=== PATIENT | male | born 1980 | race Caucasian/White ===

== ENCOUNTER 2019-10-06 20:58 | Emergency (ER) | payer SELFPAY ==
[~2019-10-06] VITALS: Ht 157.5 cm; Wt 63.5 kg
[2019-10-06 21:05] VITALS: BP 108/75
--- NOTE | 2019-10-06 21:05 | NUR ---
PT [facility] BLS. TAKEN TO BED 7
--- NOTE | 2019-10-06 21:17 | NUR ---
38 YEAR OLD MALE BIBA FROM [facility] IN [place] FOR VOMITTING, PER EMS BYSTANDERS CALLED FOR PT. BOWEL SOUNDS ACTIVE X4, SOFT, NONTENDER, NONDISTENDED. PATIENT AOX3 TO NAME, , LOCATION. PATIENT [facility] 14 IS CONFUSED AND ANSWERS QUESTIONS WITH RANDOM ANSWERS. PATIENT BREATHING EVEN AND UNLABORED, SKIN WARM AND DRY. BED IN LOWEST POSITION, LOCKED, BED RAIL UPX1. PT PLACED ON MONITOR, VS STABLE. PMH - SCHIZO ALLERGIES - NORCO
--- NOTE | 2019-10-06 21:25 | NUR ---
PATIENT TORE OFF ALL MONITORING EQUIPMENT, PACING AROUND BEDSIDE. PT EDUCATED OF IMPORTANCE OF EQUIPMENT, REFUSED
--- NOTE | 2019-10-06 21:43 | NUR ---
PT KEEPS SHOUTING, TALKS TO SELF AND IS AGITATED. ERMD MADE AWARE
[2019-10-06] MEDS ORDERED: ZIPRASIDONE MESYLATE 20 MG/ML VIAL IM ONE (21:45)
[2019-10-06] MEDS ORDERED: diphenhydrAMINE 50 MG/ML VIAL IM ONE (21:45)
[2019-10-06] MEDS ORDERED: LORazepam 2 MG/ML VIAL IM ONE (21:45)
--- NOTE | 2019-10-06 22:20 | NUR ---
PATIENT RESTING WITH EYES CLOSED, BREATHING EVEN AND UNLABORED
--- NOTE | 2019-10-06 22:40 | NUR ---
Patient will be admitted to care of DR CRUZ. Admited to TELE. Will go to room 120A. Belongings list completed. Report to MAYITO PATEL.
--- NOTE | 2019-10-06 22:40 | NUR ---
Note ghada in EDM - 10/07/19 at 0106 by DAWN Patient will be admitted to care of DR CRUZ. Admited to TELE. Will go to room 120A. Belongings list completed. Report to MAYITO PATEL.
--- NOTE | 2019-10-06 23:10 | NUR ---
PATIENT RESTING WITH EYES CLOSED, BREATHING EVEN AND UNLABORED
--- NOTE | 2019-10-07 00:24 | NUR ---
PATIENT RESTING WITH EYES CLOSED, BREATHING EVEN AND UNLABORED
--- NOTE | 2019-10-07 00:52 | NUR ---
PATIENT RESTING WITH EYES CLOSED, BREATHING EVEN AND UNLABORED.
--- NOTE | 2019-10-07 02:25 | NUR ---
PATIENT RESTING WITH EYES CLOSED, BREATHING EVEN AND UNLABORED.
--- NOTE | 2019-10-07 04:34 | NUR ---
PATIENT RESTING WITH EYES CLOSED, BREATHING EVEN AND UNLABORED
[2019-10-07 06:19] VITALS: BP 94/62
--- NOTE | 2019-10-07 06:20 | NUR ---
Patient given written and verbal discharge instructions and verbalizes understanding. Given copies of tests performed during visit. Patient is awake, alert and oriented. Ambulatory with steady gait. Refuses offer of alf placement. Given list of available shelters in surrounding areas. Patient clothes appropriate for weather, sandwitch and food given.
--- NOTE | 2019-10-07 06:20 | NUR ---
Patient discharged with v/s stable. Written and verbal after care instructions about polysubstance abuse given and explained. Patient verbalized understanding. Ambulatory with steady gait. All questions addressed prior to discharge. Advised to follow up with PMD.
== END 2019-10-07 06:20 | disposition home or self-care (01) ==
LOC: MED 20:58
DX: F20.9 Schizophrenia, unspecified (principal); F19.10 Other psychoactive substance abuse, uncomplicated; Z88.6 Allergy status to analgesic agent; Z88.5 Allergy status to narcotic agent
CPT/HCPCS: 96372; 99284; J1200; J2060; J3486

== ENCOUNTER 2020-12-15 08:55 | Inpatient (IN) | payer SELFPAY ==
[~2020-12-15] VITALS: Ht 165.1 cm; Wt 72.6 kg
[2020-12-15 09:09] VITALS: BP 128/67
--- NOTE | 2020-12-15 09:18 | NUR ---
PT AMBULATED TO BED
--- NOTE | 2020-12-15 09:35 | NUR ---
40 Y/O M BIB SELF FROM HOME, PATIENT PRESENTS TO ED WITH C/O CHEST PAIN RADIATING TO LLQ. PT STATES HIS LAST ALCOHOL CONSUMPTION WAS 5 DAYS AGO, TYPICALLY DRINKS 12 BEERS IN ONE SITTING. DENIES ANY DRUG USE. DENIES VOMITING, DIARRHEA, CONSTIPATION; SKIN IS PINK/WARM/DRY; AAOX4 WITH EVEN AND STEADY GAIT; LUNGS CLEAR BL; HR EVEN AND REGULAR; PT DENIES ANY FEVER, SOB, OR COUGH AT THIS TIME; PATIENT STATES PAIN OF 8/10 AT THIS TIME; VSS; PATIENT POSITIONED FOR COMFORT; HOB ELEVATED; BEDRAILS UP X2; BED DOWN. ER MD MADE AWARE OF PT STATUS. MEDHX: GALLSTONES, SCHIZOPHRENIA, ALCOHOL DEPENDENCY, TOBACCO DEPENDENCY ALLERGIES: TYLENOL, HYDROCODONE
[2020-12-15] MEDS ORDERED: ALUMINUM HYD/MAG/SIMETHICONE 30 ML UDC PO ONE (10:05)
[2020-12-15] MEDS ORDERED: FAMOTIDINE 20 MG TAB PO ONE (10:05)
--- NOTE | 2020-12-15 11:01 | NUR ---
URINE WAS COLLECTED AND LAB WAS DRAWN VIA IV AND DISCONTINUED. URINE AND LABS WERE TAKEN TO LAB, LEFT WITH HARRISON PHLEB.
[2020-12-15 11:05] LABS: APPEARANCE,URINE CLEAR (CLEAR); BILIRUBIN,URINE NEGATIVE (NEGATIVE); BLOOD, URINE NEGATIVE (NEGATIVE); COLOR,URINE YELLOW (YELLOW); LEUKOCYTE ESTERASE ,URINE NEGATIVE (NEGATIVE); NITRITE, URINE NEGATIVE (NEGATIVE); PH,URINE 6.5 (5.0-9.0); UGLUCOSE NEGATIVE (NEGATIVE)
[2020-12-15 11:17] LABS: BASOPHILS # (AUTO) 0.1 K/uL (0.00-0.22); BASOPHILS % (AUTO) 0.9 % (0.0-2.0); EOSINOPHILS # (AUTO) 0.1 K/uL (0-0.4); HEMOGLOBIN 12.9 g/dL (12.0-18.0); LYMPHOCYTES # (AUTO) 1.4 K/uL (2.0-11.5); LYMPHOCYTES % (AUTO) 14.1 % (20.5-51.1); MEAN CORPUSCULAR HEMOGLOBIN 33 pg (27-31); MEAN CORPUSCULAR HGB CONC 33 g/dL (33-37); MEAN CORPUSCULAR VOLUME 99.1 fL (80-94); MONOCYTES # (AUTO) 0.5 K/uL (0.8-1.0); NEUTROPHILS # (AUTO) 7.8 K/uL (1.8-7.7); PLATELET COUNT (AUTO) 633 K/uL (140-450); RED BLOOD CELL COUNT(AUTO) 3.93 MIL/uL (4.20-6.10); RED CELL DISTRIBUTION WIDTH 14.2 % (11.6-13.7); WHITE BLOOD COUNT (AUTO) 9.9 K/uL (4.8-10.8)
[2020-12-15 11:19] LABS: ALBUMIN 3.1 g/dL (3.4-5.0); ANION GAP 8.1 (8-16); CARBON DIOXIDE 29.9 mmol/L (21-32); CREATININE 0.7 mg/dL (0.6-1.3); TOTAL BILIRUBIN 0.1 mg/dL (0.0-1.0)
[2020-12-15] MEDS ORDERED: NACL 0.9% 1,000 ML IV ONE (13:10)
--- NOTE | 2020-12-15 16:01 | NUR ---
Patient will be admitted to care of SEJAL BRITO. Admited to MED SURG. Will go to room 106A. Belongings list completed. Report to DENISE PATEL.
--- NOTE | 2020-12-15 16:10 | NUR ---
Pt admitted from ED to room 106A via wheelchair. Pt able to ambulate to bed with steady gait. Pt is aaox4, c/o 6/10 abd pain with movement but reports it is tolerable and feels better than when he came in to the ED. Right AC IV 20G intact and asymptomatic. Orientation provided to room and unit routines. Pt verbalized understanding and able to repeat back instructions.
[2020-12-15 16:15] VITALS: BP 113/70
[2020-12-15] MEDS: MORPHINE SULFATE 4 MG/ML SYR IVP PRN (18:18)
--- NOTE | 2020-12-15 19:20 | NUR ---
RECD. SITTING ON BED, AWAKE, A/OX4. RESPIRATION EVEN AND UNLABORED. IV SALINE LOCK AT THE RIGHT AC G20, PATENT AND INTACT. INDEPENDENT, NPO. AMBULATORY TO THE BR. MEDICATIONS AND CARE FOR THE SHIFT DISCUSSED WITH PATIENT. VERBALIZED UNDERSTANDING. DENIES PAIN 0/10.
[2020-12-15] MEDS: NACL 0.9% 1,000 ML IV SCH (19:25)
[2020-12-15 20:00] VITALS: BP 112/70
--- NOTE | 2020-12-15 20:00 | NUR ---
PATIENT'S PLAN OF CARE WAS DISCUSSED AND REVIEWED WITH SUPERVISOR WHIPPED TOPPING: SCARLET BECKHAM.
--- NOTE | 2020-12-15 23:00 | NUR ---
INFORMED NURSE HE IS HEARING VOICES AND HE WANTS HIS HOME MEDICATIONS FOR SCHIZOPHRENIA. WILL MESSAGED DR. POST.
[2020-12-15] MEDS: OLANZapine 5 MG TAB PO SCH (23:36)
[2020-12-15] MEDS: ARIPiprazole 10 MG TAB PO SCH (23:37)
--- NOTE | 2020-12-15 23:37 | NUR ---
MEDICATED WITH ZYPREXA AND ABILIFY PER MD ORDER TO CONTINUE HOME MEDICATIONS.
[2020-12-16] VITALS: BP 106/69
--- NOTE | 2020-12-16 00:40 | NUR ---
DENIES HEARING VOICES.
[2020-12-16] MEDS: MORPHINE SULFATE 4 MG/ML SYR IVP PRN (00:44)
[2020-12-16] MEDS: NACL 0.9% 1,000 ML IV SCH ×4 (02:05→21:22)
--- NOTE | 2020-12-16 03:00 | NUR ---
RESPIRATION EVEN AND UNLABORED. COMFORTABLY SLEEPING IN BED.
[2020-12-16 04:00] VITALS: BP 94/62
--- NOTE | 2020-12-16 05:00 | NUR ---
NO DISTRESS NOTED. COMFORTABLE IN BED.
--- NOTE | 2020-12-16 07:20 | NUR ---
CONDITION REMAIN STABLE. ENDORSED TO AM SHIFT NURSE FOR CONTINUITY OF CARE.
--- NOTE | 2020-12-16 07:21 | NUR ---
PT ENDORSED BY REFINING SUPERVISOR NURSE FOR CONTINUITY OF CARE, POC DISCUSSED. PT IS RESTING COMFORTABLE IN BED ON ROOM AIR WITH CHEST RISING AND FALLING EVEN AND UNLABORED. NO SIGNS OF ACUTE DISTRESS. PT SKIN INTACT WITH A RIGHT AC 20 GAUGE RUNNING NS AT 150. ALL SAFETY MEASURES IN PLACE, CALL LIGHT WITHIN REACH. WILL CONTINUE TO MONITOR.
[2020-12-16] MEDS ORDERED: CRUSHER, PILL MC ONE (08:28)
[2020-12-16] MEDS: OLANZapine 5 MG TAB PO SCH ×2 (08:34→20:31)
[2020-12-16] MEDS: ARIPiprazole 10 MG TAB PO SCH ×2 (08:34→20:31)
--- NOTE | 2020-12-16 08:38 | NUR ---
MELVI MEDICATION ADMINISTERED. PT EDUCATION PROVIDED. PT VITAL SIGNS: 98%, 65HR, 14 RR, BP 95/53 AND TEMP 98.1. EDUCATION PROVIDED ON PAIN MANAGEMENT AND REASSESSING BLOOD PRESSURE. PATIENT NODDED IN UNDERSTANDING. PT IS RESTING IN BED WITH CALL LIGHT WITHIN REACH AND NO SIGNS OF ACUTE DISTRESS. ALL SAFETY MEASURES IN PLACE, CALL LIGHT WITHIN REACH. WILL CONTINUE TO MONITOR.
[2020-12-16] MEDS ORDERED: ONDANSETRON 4 MG/2 ML VIAL IM/IVP PRN (09:10)
[2020-12-16] MEDS ORDERED: ZOLPIDEM 5 MG TAB PO PRN (09:10)
[2020-12-16] MEDS ORDERED: DOCUSATE SODIUM 100 MG GELCAP PO PRN (09:10)
[2020-12-16] MEDS ORDERED: LORazepam 2 MG/ML VIAL IM/IVP PRN (09:10)
[2020-12-16] MEDS ORDERED: MAG SULF 2000 MG/WATER PREMIX 50 ML IV PRN (09:10)
[2020-12-16] MEDS ORDERED: POTASSIUM CHLORIDE 10 MEQ TABER PO PRN (09:10)
--- NOTE | 2020-12-16 09:11 | NUR ---
PATIENT HAS BEEN SCREENED AND CATEGORIZED LOW NUTRITION RISK. PATIENT WILL BE SEEN WITHIN 7 DAYS OF ADMISSION. 12/22/[address]
--- NOTE | 2020-12-16 10:17 | NUR ---
ROUNDED ON PT, PT IS RESTING AND HAS NO COMPLAINTS. REPORTS ALL NEEDS ARE MET. CALL LIGHT WITHIN REACH. WILL CONTINUE TO MONITOR.
[2020-12-16 11:50] LABS: BASOPHILS % (AUTO) 0.5 % (0.0-2.0); EOSINOPHILS # (AUTO) 0.2 K/uL (0-0.4); EOSINOPHILS % (AUTO) 2.9 % (0.0-4.0); HEMATOCRIT 34.4 % (36-52); HEMOGLOBIN 11.5 g/dL (12.0-18.0); LYMPHOCYTES # (AUTO) 1.1 K/uL (2.0-11.5); LYMPHOCYTES % (AUTO) 15.7 % (20.5-51.1); MEAN CORPUSCULAR HEMOGLOBIN 33 pg (27-31); MEAN CORPUSCULAR HGB CONC 33 g/dL (33-37); MEAN CORPUSCULAR VOLUME 97.7 fL (80-94); MONOCYTES # (AUTO) 0.5 K/uL (0.8-1.0); MONOCYTES % (AUTO) 6.8 % (1.7-9.3); NEUTROPHILS # (AUTO) 5.3 K/uL (1.8-7.7); NEUTROPHILS % (AUTO) 74.1 % (42.2-75.2); PLATELET COUNT (AUTO) 471 K/uL (140-450); RED BLOOD CELL COUNT(AUTO) 3.52 MIL/uL (4.20-6.10); RED CELL DISTRIBUTION WIDTH 14.3 % (11.6-13.7); WHITE BLOOD COUNT (AUTO) 7.2 K/uL (4.8-10.8)
[2020-12-16 11:54] LABS: PROTHROMBIN TIME 10.4 secs (10.8-13.4)
[2020-12-16 12:04] LABS: MAGNESIUM 1.7 mg/dL (1.8-2.4); PHOSPHORUS 3.4 mg/dL (2.5-4.9); THYROID STIMULATING HORMONE 0.41 uIU/mL (0.34-3.74)
[2020-12-16] MEDS: MORPHINE SULFATE 2 MG/ML SYR IVP PRN ×2 (12:09→20:43)
[2020-12-16 12:13] LABS: ALBUMIN 2.8 g/dL (3.4-5.0); ANION GAP 8.6 (8-16); CARBON DIOXIDE 28.4 mmol/L (21-32); CREATININE 0.6 mg/dL (0.6-1.3); TOTAL BILIRUBIN 0.2 mg/dL (0.0-1.0)
--- NOTE | 2020-12-16 14:49 | NUR ---
DC PLANNING: SPOKE WITH PATIENT AT BEDSIDE. STATES HE IS HOMELESS, HAS BEEN AT A [facility] FOR ONE WEEK. CONTACT THERE IS E[facility], MESSAGE LEFT ASKING HOME TO CONFIRM THAT PATIENT WILL RETURN THERE. PATIENT ALSO HAS A BROTHER, HILARIA VICTOR ([phone]) WHO GIVES HIM MONEY, PATIENT IS UNEMPLOYED X 8 YEARS AND HAS NO INCOME SOURCE. ADMITS TO ETOH ABUSE AND SCHIZOPHRENIA, DOES NOT HAVE A PCP AND DOES NOT SEE A PHYSICIAN WITH ANY REGULARITY. CURRENTLY SELF PAY, REFERRED FOR M/STUART ELIGIBILITY. PATIENT STATES HE'S RECEIVING ZYPREXA HERE AND THAT HE FEELS MUCH BETTER ON IT. CM WILL CONTINUE TO FOLLOW FOR NEEDS. Addendum: 12/17/20 at 1115 by Kathryn Alexander DC PLANNING: CM SPOKE WTIH PATIENT AT BEDSIDE, ENDORSED THAT PATIENT WILL DC TODAY. ENDORSED THAT A MESSAGE WAS LEFT WITH THE RESIDENTIAL FACILITY HE CAME FROM BUT THAT THEY HAD NOT RESPONDED TO 2 CALLS. CONFIRMED THAT HIS BROTHER CAN PROVIDE TRANSPORT BACK TO FACILITY/HOME AND THAT HE CAN STAY WITH HIS BROTHER IF HOME DOESN'T TAKE HIM BACK. ALSO ENDORSED THAT HIS ZYPREXA HAS BEEN CALLED IN TO A [facility] IN [place] AND THAT NURSING WILL GIVE HIM THE DETAILS. SUGGESTED THAT HE STOP BY PHARMACY ON HIS WAY TO THE HOME.
[2020-12-16 16:00] VITALS: BP 105/62
--- NOTE | 2020-12-16 16:02 | NUR ---
ROUNDED ON PT, PT IS RESTING IN BED WITH NO SIGNS OF ACUTE DISTRESS. VERBALIZED PAIN TOLERABLE. ALL NEEDS ARE MET. IV FLUID STILL RUNNING AT 150ML, IV SITE PATENT. ALL SAFETY MEASURES IN PLACE CALL LIGHT WITHIN REACH. WILL CONTINUE TO MONITOR.
--- NOTE | 2020-12-16 17:44 | NUR ---
PT IS WALKING BACK FROM THE BATHROOM WITH NO S/S OF ACUTE DISTRESS. PT IS STABLE. IV SITE INTACT AND PATENT. PT BACK IN BED WITH CALL LIGHT WITHIN REACH. ALL NEEDS MET, ALL SAFETY MEASURES IN PLACE, WILL CONTINUE TO MONITOR.
--- NOTE | 2020-12-16 18:50 | NUR ---
BRIT VELÁSQUEZ FOR 1.7 LEVEL. PT EDUCATION PROVIDED, PT VERBALIZED UNDERSTANDING. PT VERBALIZED PAIN IS "GETTING MUCH BETTER". ALL SAFETY MEASURES IN PLACE, CALL LIGHT WITHIN REACH. WILL CONTINUE TO MONITOR.
--- NOTE | 2020-12-16 19:07 | NUR ---
PT ENDORSED TO LEATHER COLORER NURSE FOR CONTINUITY OF CARE. POC DISCUSSED
--- NOTE | 2020-12-16 19:30 | NUR ---
REPORT GIVEN BY AM SHIFT. PT IS ALERT ORIENTED X4. NO S/S OF ANY RESP DISTRESS, NO SOB. PT LYING ON BED. SKIN WARM TO TOUCH. SKIN IS INTACT. SR ON TELE MONITOR. IV LINE TO RAC NO 20 WITH NS RUNNING AT 150 CC/HR DARIN WELL. PT IS CONTINENT BOWEL AND BLADDER. GENTLE CARE GIVEN. KEPT CLEAN AND DRY. CALL LIGHT IN REACH.
--- NOTE | 2020-12-16 20:44 | NUR ---
PT C/O PAIN ABD BETWEEN 11/18 TO 12/18. PRN PAIN MEDS GIVEN ORDER.
--- NOTE | 2020-12-16 21:30 | NUR ---
PT SLEEP WELL, NO S/S OF PAIN NOTED.
[2020-12-17] VITALS: BP 92/57
--- NOTE | 2020-12-17 00:23 | NUR ---
PT SLEEP GOOD AT THIS TIME.
[2020-12-17] MEDS: NACL 0.9% 1,000 ML IV SCH ×2 (04:00→11:25)
--- NOTE | 2020-12-17 04:46 | NUR ---
PT STILL SLEEPING. NO S/S PAIN NOTED.
[2020-12-17 06:09] LABS: BASOPHILS % (AUTO) 0.6 % (0.0-2.0); EOSINOPHILS # (AUTO) 0.3 K/uL (0-0.4); EOSINOPHILS % (AUTO) 3.5 % (0.0-4.0); HEMATOCRIT 34.8 % (36-52); HEMOGLOBIN 11.4 g/dL (12.0-18.0); LYMPHOCYTES # (AUTO) 1.7 K/uL (2.0-11.5); LYMPHOCYTES % (AUTO) 21.4 % (20.5-51.1); MEAN CORPUSCULAR HEMOGLOBIN 32 pg (27-31); MEAN CORPUSCULAR HGB CONC 33 g/dL (33-37); MEAN CORPUSCULAR VOLUME 98.8 fL (80-94); MONOCYTES # (AUTO) 0.7 K/uL (0.8-1.0); MONOCYTES % (AUTO) 8.3 % (1.7-9.3); NEUTROPHILS # (AUTO) 5.4 K/uL (1.8-7.7); NEUTROPHILS % (AUTO) 66.2 % (42.2-75.2); PLATELET COUNT (AUTO) 485 K/uL (140-450); RED BLOOD CELL COUNT(AUTO) 3.53 MIL/uL (4.20-6.10); RED CELL DISTRIBUTION WIDTH 14.1 % (11.6-13.7); WHITE BLOOD COUNT (AUTO) 8.1 K/uL (4.8-10.8)
[2020-12-17 06:27] LABS: ANION GAP 12.9 (8-16); CREATININE 0.6 mg/dL (0.6-1.3); POTASSIUM 3.9 mmol/L (3.5-5.1)
[2020-12-17 06:31] LABS: CHOL/HDL RATIO 6.2 (1-4.5); MAGNESIUM 2.2 mg/dL (1.8-2.4); PHOSPHORUS 3.1 mg/dL (2.5-4.9)
--- NOTE | 2020-12-17 07:33 | NUR ---
REPORT GIVEN TO AM SHIFT. PT IS SLEEPING AT THIS TIME.
--- NOTE | 2020-12-17 07:35 | NUR ---
RECEIVED BEDSIDE REPORT FROM SENIOR REPORT DEVELOPER NURSE FOR CONTINUITY OF CARE. PT IS ALERT ORIENTED X4. RESPIRATIONS EVEN AND UNLABORED. NO S/S OF ANY RESP DISTRESS, NO SOB. SKIN WARM TO TOUCH. SKIN IS INTACT. IV LINE ON RAC 20 WITH NS RUNNING AT 150 CC/HR. PATENT AND INTACT. PT IS CONTINENT BOWEL AND BLADDER. PLAN OF CARE DISCUSSED. CALL LIGHT WITHIN REACH. WILL CONTINUE TO MONITOR.
[2020-12-17 08:00] VITALS: BP 103/70
[2020-12-17 08:07] LABS: T4 (THYROXINE) 6.3 ug/dL (4.5-12.0)
[2020-12-17] MEDS: OLANZapine 5 MG TAB PO SCH (09:39)
[2020-12-17] MEDS: ARIPiprazole 10 MG TAB PO SCH (09:39)
[2020-12-17] MEDS: MORPHINE SULFATE 4 MG/ML SYR IVP PRN (09:42)
[2020-12-17] MEDS ORDERED: CRUSHER, PILL MC ONE (09:42)
--- NOTE | 2020-12-17 09:42 | NUR ---
PATIENT COMPLAINED OF ABD PAIN 8/. ADMINISTERED PRN PAIN MEDICATIONS PER MD ORDERED.
--- NOTE | 2020-12-17 10:00 | NUR ---
ALL SCHEDULED MEDS GIVEN. PT IS STABLE. NO DISTRESS NOTED. WILL CONTINUE TO MONITOR.
[2020-12-17] MEDS ORDERED: ABI10 PO (10:07)
[2020-12-17] MEDS ORDERED: OLAN5TAB30 PO (10:07)
[2020-12-17] MEDS ORDERED: PANT40EC PO (10:09)
--- NOTE | 2020-12-17 12:25 | NUR ---
RECEIVED CALL FROM LAB. PT IS TESTED + FOR MRSA IN NARES. NOTIFIED MD AND PROTOCOL IN PLACE.
[2020-12-17] MEDS ORDERED: MUPIROCIN CA NASAL 2% 1GM TUBE NS SCH (12:30)
[2020-12-17] MEDS ORDERED: CHLORHEXADINE GLUC 2% CLOTH TP SCH (12:30)
[2020-12-17 12:41] VITALS: BP 103/70
--- NOTE | 2020-12-17 13:00 | NUR ---
ENDORSED DISCHARGE INSTRUCTIONS TO PATIENT. PATIENT VERBALIZED UNDERSTANDING AND SIGNED THE DISCHARGE FORMS.
--- NOTE | 2020-12-17 13:15 | NUR ---
PT OFF THE UNIT. REMOVED ID WRIST BAND AND IV CATHETER. PATIENT TOOK THE BUS HOME. PT WAS STABLE PRIOR TO DISCHARGE.
== END 2020-12-17 13:15 | disposition home or self-care (01) | DRG 439 ==
LOC: MED 08:55 → EDBEDREQSVC 12:46 → MTU 13:03
DX: K85.90 Acute pancreatitis without necrosis or infection, unspecified (principal); E44.0 Moderate protein-calorie malnutrition; F10.10 Alcohol abuse, uncomplicated; F15.10 Other stimulant abuse, uncomplicated; D75.89 Other specified diseases of blood and blood-forming organs; D47.3 Essential (hemorrhagic) thrombocythemia; D63.8 Anemia in other chronic diseases classified elsewhere; E83.42 Hypomagnesemia; F20.9 Schizophrenia, unspecified; F17.210 Nicotine dependence, cigarettes, uncomplicated; Z88.6 Allergy status to analgesic agent; Z88.5 Allergy status to narcotic agent; Z90.49 Acquired absence of other specified parts of digestive tract; Z91.14 Patient's other noncompliance with medication regimen; Z68.26 Body mass index [BMI] 26.0-26.9, adult
CPT/HCPCS: 36415; 76705; 80048; 80053; 81003; 82140; 82150; 83036; 83690; 83735; 83880; 84100; 84134; 84436; 84443; 85025; 85610; 85730; 87081; 93005; 96360; 96361; 99285; J1644; J2270; J3475

== ENCOUNTER 2021-02-07 19:55 | Inpatient (IN) | payer MEDICAID ==
[~2021-02-07] VITALS: Ht 160 cm; Wt 65.8 kg
[~2021-02-07 19:55] MED LIST: ABI10 PO; OLAN5TAB65 PO; PANT40EC PO
[2021-02-07] MEDS ORDERED: NACL 0.9% 1,000 ML IV SCH (20:35)
[2021-02-07] MEDS ORDERED: MORPHINE SULFATE 4 MG/ML SYR IVP ONE (20:35)
[2021-02-07] MEDS ORDERED: ONDANSETRON 4 MG/2 ML VIAL IVP ONE (20:35)
[2021-02-07 20:38] VITALS: BP 96/65
[2021-02-07 21:02] LABS: BASOPHILS % (AUTO) 0.3 % (0.0-2.0); EOSINOPHILS # (AUTO) 0.1 K/uL (0-0.4); EOSINOPHILS % (AUTO) 1.5 % (0.0-4.0); HEMATOCRIT 34.7 % (36-52); HEMOGLOBIN 11.4 g/dL (12.0-18.0); LYMPHOCYTES # (AUTO) 1.5 K/uL (2.0-11.5); LYMPHOCYTES % (AUTO) 14.8 % (20.5-51.1); MEAN CORPUSCULAR HEMOGLOBIN 30 pg (27-31); MEAN CORPUSCULAR HGB CONC 33 g/dL (33-37); MEAN CORPUSCULAR VOLUME 92.5 fL (80-94); MONOCYTES # (AUTO) 0.8 K/uL (0.8-1.0); MONOCYTES % (AUTO) 7.4 % (1.7-9.3); NEUTROPHILS # (AUTO) 7.7 K/uL (1.8-7.7); PLATELET COUNT (AUTO) 372 K/uL (140-450); RED BLOOD CELL COUNT(AUTO) 3.75 MIL/uL (4.20-6.10); WHITE BLOOD COUNT (AUTO) 10.1 K/uL (4.8-10.8)
--- NOTE | 2021-02-07 21:15 | NUR ---
PT AMBULATED TO BED #4
--- NOTE | 2021-02-07 21:20 | NUR ---
PT. IS A 40 Y/O MALE THAT CAME INTO ED WITH C/O OF ABDOMINAL PAIN. PT. STATES THAT AROUND 10 AM OF THIS MORNING WAS WHEN THE PAIN STARTED. HE DESCRIBES IT "SHARP PAIN" AND RATES PAIN AT 9/10 ON THE PAIN SCALE AT THIS TIME. PT. STATES THAT PAIN IS LOCALIZE UNDER STERNUM. DENIES N/V/D. SKIN IS PINK/WARM/DRY; AAOX4 WITH EVEN AND STEADY GAIT; HR EVEN AND REGULAR; PT DENIES ANY FEVER, CP, SOB, OR COUGH AT THIS TIME; VSS; PATIENT POSITIONED FOR COMFORT; HOB ELEVATED; BEDRAILS UP X2; BED DOWN. ER MD MADE AWARE OF PT STATUS. PMH: SCHIZOPRENIA AND PANCREATITIS ALLERGIES: NKA
[2021-02-07 21:24] LABS: ALBUMIN 3.4 g/dL (3.4-5.0); ANION GAP 13.9 (8-16); CARBON DIOXIDE 27.1 mmol/L (21-32); TOTAL BILIRUBIN 0.4 mg/dL (0.0-1.0)
[2021-02-07] MEDS ORDERED: ONDANSETRON 4 MG/2 ML VIAL ONE (22:06)
[2021-02-07] MEDS ORDERED: MORPHINE SULFATE 4 MG/ML SYR ONE (22:06)
--- NOTE | 2021-02-07 22:39 | NUR ---
PT. STATES RELIEF FROM PAIN AND RATES PAIN 6/10 FROM 9/10 AT THIS TIME. VOICES NO COMPLAINTS AT THIS TIME. WILL CONTINUE TO MONITOR
[2021-02-07] MEDS: LACTATED RINGERS 1,000 ML IV SCH (23:01)
--- NOTE | 2021-02-07 23:10 | NUR ---
PT. IN SUPINE POSITION, RESTING WITH EYES CLOSED. VOICES NO COMPLAINTS AT THIS TIME. NO DISTRESS NOTED, WILL CONTINUE TO MONITOR
[2021-02-07] MEDS ORDERED: SODIUM PHOS / POTASSIUM PHOS 1 PKT PDR PO PRN (23:30)
[2021-02-07] MEDS ORDERED: MAG SULF 2000 MG/WATER PREMIX 50 ML IV PRN (23:30)
[2021-02-07] MEDS ORDERED: POTASSIUM CHLORIDE 40 MEQ, LIDOCAINE MPF 1% 25 MG in NACL 0.9% 250 ML IV PRN (23:30)
[2021-02-07] MEDS ORDERED: ACETAMINOPHEN 325 MG TAB PO PRN (23:30)
[2021-02-07] MEDS ORDERED: ONDANSETRON 4 MG/2 ML VIAL IM/IVP PRN (23:30)
[2021-02-07] MEDS ORDERED: DOCUSATE SODIUM 100 MG GELCAP PO PRN (23:30)
[2021-02-07 23:49] LABS: MAGNESIUM 1.9 mg/dL (1.8-2.4); PHOSPHORUS 3.8 mg/dL (2.5-4.9)
--- NOTE | 2021-02-08 01:54 | NUR ---
PT. RESTING WITH EYES CLOSED IN SUPINE POSITION, BREATHING UNLABORED. VOICES NO COMPLAINTS AT THIS TIME.
--- NOTE | 2021-02-08 05:00 | NUR ---
PT. IN [place] POSITION TO PREVENT LOW BP. PT. RESTING WITH EYES CLOSED, VOICES NO COMPLAINTS AT THIS TIME.
--- NOTE | 2021-02-08 06:00 | NUR ---
PT. STATES HIS PAIN HAS COME BACK AND IS ASKING FOR PAIN MEDICATION. WHEN ASKED TO RATE PAIN, PT. RATES 8/10 ON THE PAIN SCALE AT THIS TIME.
[2021-02-08] MEDS: LACTATED RINGERS 1,000 ML IV SCH ×3 (06:14→18:43)
[2021-02-08] MEDS: MORPHINE SULFATE 2 MG/ML SYR IVP PRN ×2 (06:27→20:22)
--- NOTE | 2021-02-08 06:34 | NUR ---
PT. STATES RELIEF FROM PAIN AFTER MEDICATION ADMINISTRATION OF MORPHINE.
[2021-02-08] MEDS ORDERED: HYDR-5080 PO (06:45)
--- NOTE | 2021-02-08 07:15 | NUR ---
REPORT GIVEN TO AAMNDA HUANG AND AMANDA SENIOR. TRANSFER OF CARE AT THIS TIME.
--- NOTE | 2021-02-08 07:16 | NUR ---
REPORT AND TRANSFER OF CARE RECEIVED FROM AMANDA SOLOMON.
--- NOTE | 2021-02-08 07:20 | NUR ---
PATIENT OBSERVED IN BED AWAKE AND ALERT, VSS, RR EVEN AND UNLABORED. FLUIDS RUNNING LR@150ML/HR. PATIENT ALSO HAS CORY DRAIN, BAG IS EMPTY, PATIENT STATES IT HAS NOT BEEN DRAINING IN 3DAYS.
[2021-02-08 07:59] LABS: BASOPHILS % (AUTO) 0.5 % (0.0-2.0); EOSINOPHILS # (AUTO) 0.2 K/uL (0-0.4); EOSINOPHILS % (AUTO) 2.2 % (0.0-4.0); HEMATOCRIT 28.5 % (36-52); HEMOGLOBIN 9.5 g/dL (12.0-18.0); LYMPHOCYTES # (AUTO) 1.4 K/uL (2.0-11.5); LYMPHOCYTES % (AUTO) 16.8 % (20.5-51.1); MEAN CORPUSCULAR HEMOGLOBIN 30 pg (27-31); MEAN CORPUSCULAR HGB CONC 33 g/dL (33-37); MEAN CORPUSCULAR VOLUME 90.9 fL (80-94); MONOCYTES # (AUTO) 0.7 K/uL (0.8-1.0); MONOCYTES % (AUTO) 8.5 % (1.7-9.3); NEUTROPHILS # (AUTO) 6.2 K/uL (1.8-7.7); PLATELET COUNT (AUTO) 278 K/uL (140-450); RED BLOOD CELL COUNT(AUTO) 3.13 MIL/uL (4.20-6.10); RED CELL DISTRIBUTION WIDTH 14.8 % (11.6-13.7); WHITE BLOOD COUNT (AUTO) 8.5 K/uL (4.8-10.8)
[2021-02-08 08:22] LABS: ANION GAP 11.5 (8-16); CARBON DIOXIDE 27.3 mmol/L (21-32); CREATININE 0.8 mg/dL (0.6-1.3); POTASSIUM 3.8 mmol/L (3.5-5.1)
--- NOTE | 2021-02-08 08:25 | NUR ---
Hebert urrutia in [facility] - 02/08/21 at 0851 by [facility] URINAL EMPTIED 300CC HIRA URINE.
--- NOTE | 2021-02-08 08:33 | NUR ---
URINAL GIVEN AT BEDSIDE.
--- NOTE | 2021-02-08 08:35 | NUR ---
URINAL EMPTIED 300CC HIRA URINE.
--- NOTE | 2021-02-08 08:47 | NUR ---
MED STUDENT AT BEDSIDE EVALUATING PATIENT, CORY DRAIN.
[2021-02-08] MEDS: PANTOPRAZOLE 40 MG INJ VIAL IVP SCH (09:55)
[2021-02-08] MEDS: KETOROLAC 30 MG/ML VIAL IVP PRN ×2 (09:56→16:53)
--- NOTE | 2021-02-08 10:54 | NUR ---
URINE SAMPLE COLLECTED FOR UDS AND WALKED TO LAB.
[2021-02-08 11:22] LABS: BARBITURATE, URINE NEGATIVE ng/ml (NEG <=200); BENZODIAZEPINE, URINE NEGATIVE ng/mL (NEG <=200); CANNABINOID, URINE NEGATIVE ng/mL (NEG <=50); COCAINE, URINE NEGATIVE ng/mL (NEG <=300); OPIATE, URINE POSITIVE ng/mL (NEG <=2000); PHENCYCLIDINE SCREEN,URINE NEGATIVE ng/mL (NEG <=25)
--- NOTE | 2021-02-08 11:42 | NUR ---
MD WHEATLEY AT BEDSIDE EVALUATING PATIENT.
--- NOTE | 2021-02-08 13:06 | NUR ---
PATIENT IN BED RESTING AT THIS TIME, RR EVEN AND UNLABORED.
--- NOTE | 2021-02-08 14:16 | NUR ---
GAVE REPORT TO SUJEY PATEL FOR ADMISSION TO TELEMETRY.
--- NOTE | 2021-02-08 14:30 | NUR ---
Patient will be admitted to care of DR WHEATLEY. Admited to 121. Will go to room A. Belongings list completed. Report to SUJEY PATEL.
--- NOTE | 2021-02-08 14:30 | NUR ---
RECEIVED REPORT FROM ED NURSE FOR ADMISSION TO UNIT. NURSE REPORTS PT IS AA&OX4 AND AMBULATORY, HOWEVER, USES URINAL TO VOID. PT IS ON RA WITH NORMAL, UNLABORED BREATHING. PT HAS A LAC 20G IV THAT IS PATENT AND RUNNING FLUIDS. NURSE ALSO REPORTS THAT PT HAS SURGICALLY PLACED PIGTAIL DRAIN IN UPPER MID ABDOMEN. WILL ASSESS WHEN PT IS ON UNIT.
--- NOTE | 2021-02-08 14:41 | NUR ---
PT ARRIVED TO UNIT VIA GURNEY FROM ER STAFF. PT DENIES PAIN AT THIS TIME. PT IS AA&OX4 AND AMBULATORY. PT IS ON RA WITH NORMAL, UNLABORED BREATHING. PT SKIN IS INTACT EXCEPT FOR LAC 20G IV AND PIGTAIL DRAIN IN PT UPPER MID ABDOMEN. PT IV IS PATENT AND RUNNING IVF PER MD ORDER. PT DENIES PAIN AT THIS TIME. WILL CONTINUE TO MONITOR.
--- NOTE | 2021-02-08 15:39 | NUR ---
PATIENT HAS BEEN SCREENED AND CATEGORIZED LOW NUTRITION RISK. PATIENT WILL BE SEEN WITHIN 7 DAYS OF ADMISSION. 02/14/[address]
[2021-02-08 16:00] VITALS: BP 100/60
--- NOTE | 2021-02-08 16:50 | NUR ---
PERFORMED FREQ ROUNDING. PT COMPLAIN OF ABDOMINAL PAIN AT INCISION SITE. STATES PAIN IS 6/10. PT CONDITION IS STABLE ASIDE FROM PAIN. HE IS AA&OX4. ON RA WITH NORMAL, UNLABORED BREATHING. HAS PATENT IV RUNNING FLUIDS PER MD ORDER. WILL CHECK MED ORDERS TO SEE WHAT I CAN GIVE FOR PAIN.
--- NOTE | 2021-02-08 16:53 | NUR ---
PT COMPLAINS OF ABDOMINAL PAIN 11/18. ADMINISTERED TORADOL IV PRN FOR PAIN. WILL REASSESS IN 30 MIN.
--- NOTE | 2021-02-08 17:23 | NUR ---
REASSESSED PT PAIN. PT SAYS PAIN IS TOLERABLE AND FEELS MORE COMFORTABLE. WILL CONTINUE TO MONITOR PAIN AND VITALS.
--- NOTE | 2021-02-08 18:02 | NUR ---
RECEIVED CALL FROM RADIOLOGIST THAT THEY WILL COME TO TRAINING DEVELOPMENT MANAGER PT TO PERFORM CT W/ CONTRAST. PREPARED PT TO GO FOR PROCEDURE.
--- NOTE | 2021-02-08 18:40 | NUR ---
PT PICKED UP BY CT TO PERFORM CT WITH CONTRAST. HANDOFF REPORT GIVEN. Addendum: 02/08/21 at 1858 by Ally Roberts RN RN PT LEFT VIA WHEELCHAIR.
--- NOTE | 2021-02-08 18:59 | NUR ---
PT RETURNED FROM CT VIA WHEELCHAIR. CONDITION IS STABLE. RECONNECTED PT TO IV AND RUNNING IVF PER MD ORDER.
--- NOTE | 2021-02-08 19:26 | NUR ---
GAVE CHANGE OF SHIFT REPORT TO NIGHT NURSE AT BEDSIDE FOR CONTINUITY OF CARE. DISCUSSED POC. Addendum: 02/08/21 at 1927 by Ally Roberts RN RN PT CONDITION IS STABLE.
--- NOTE | 2021-02-08 19:30 | NUR ---
RECEIVED PT ON BED, AAOX4, SANJU TO MAKE NEEDS KNOWN, COMPLAINING OF ABDOMINAL PAIN, WILL MEDICATE PRN, MAINTAINED ON NPO ORDERED, IVF INFUSING WELL, WITH ABDOMINAL PIGTAIL CATHETER DRAIN, NO DRAINAGE NOTED, PLAN OF CARE DISCUSSED, SAFETY MEASURES IN PLACE, CALL LIGHT WITHIN REACH.
[2021-02-08 20:00] VITALS: BP 103/69
[2021-02-08] MEDS ORDERED: CRUSHER, PILL MC ONE (20:12)
[2021-02-08] MEDS: OLANZapine 5 MG TAB PO SCH (20:16)
[2021-02-08] MEDS: ARIPiprazole 10 MG TAB PO SCH (20:17)
[2021-02-08] MEDS: metroNIDAZOLE 500 MG/NS PREMIX 100 ML IV SCH (20:18)
--- NOTE | 2021-02-08 22:10 | NUR ---
PT VOIDED FREELY PER URINAL, DENIES ANY PAIN, MAINTAINED ON NPO, IVF INFUSING WELL, MONITORED CLOSELY.
--- NOTE | 2021-02-09 01:00 | NUR ---
PT SLEEPING, NO SIGNS OF DISTRESS, IVF INFUSING WELL, MONITORED CLOSELY.
[2021-02-09 04:00] VITALS: BP 98/65
[2021-02-09] MEDS: LACTATED RINGERS 1,000 ML IV SCH ×2 (04:26→08:21)
[2021-02-09] MEDS: metroNIDAZOLE 500 MG/NS PREMIX 100 ML IV SCH ×3 (04:26→23:26)
--- NOTE | 2021-02-09 04:30 | NUR ---
PT SLEEPING, EASILY AROUSABLE, VITAL SIGNS STABLE, DENIES ANY PAIN, IVF INFUSING WELL, PT SIGNED CONSENT TO OBTAIN MEDICAL RECORDS FROM [facility], MAINTAINED ON NPO, ABDOMINAL PIGTAIL CATHETER WITH NO DRAINAGE NOTED, MONITORED CLOSELY.
[2021-02-09 05:48] LABS: BASOPHILS % (AUTO) 0.5 % (0.0-2.0); EOSINOPHILS # (AUTO) 0.2 K/uL (0-0.4); EOSINOPHILS % (AUTO) 3.8 % (0.0-4.0); HEMOGLOBIN 9.6 g/dL (12.0-18.0); LYMPHOCYTES # (AUTO) 1.4 K/uL (2.0-11.5); LYMPHOCYTES % (AUTO) 24.1 % (20.5-51.1); MEAN CORPUSCULAR HEMOGLOBIN 31 pg (27-31); MEAN CORPUSCULAR HGB CONC 33 g/dL (33-37); MEAN CORPUSCULAR VOLUME 92.4 fL (80-94); MONOCYTES # (AUTO) 0.6 K/uL (0.8-1.0); MONOCYTES % (AUTO) 9.3 % (1.7-9.3); NEUTROPHILS # (AUTO) 3.7 K/uL (1.8-7.7); NEUTROPHILS % (AUTO) 62.3 % (42.2-75.2); PLATELET COUNT (AUTO) 279 K/uL (140-450); RED BLOOD CELL COUNT(AUTO) 3.14 MIL/uL (4.20-6.10); RED CELL DISTRIBUTION WIDTH 14.8 % (11.6-13.7)
--- NOTE | 2021-02-09 06:10 | NUR ---
PT SLEEPING, NO SIGNS OF DISTRESS, IVF INFUSING WELL, MONITORED CLOSELY.
[2021-02-09 06:18] LABS: ANION GAP 11.7 (8-16); CREATININE 0.8 mg/dL (0.6-1.3); POTASSIUM 3.7 mmol/L (3.5-5.1)
--- NOTE | 2021-02-09 07:12 | NUR ---
PT SLEEPING, NO SIGNS OF DISTRESS, REPORT GIVEN TO RN LAUREN FOR CONTINUITY OF CARE.
--- NOTE | 2021-02-09 07:15 | NUR ---
REPORT RECEIVED FROM FILTER TANK TENDER HELPER RN. PT RESTING IN BED, EYES CLOSED BREATHING IS SYMMETRICAL.
[2021-02-09] MEDS: PANTOPRAZOLE 40 MG INJ VIAL IVP SCH (08:21)
[2021-02-09] MEDS: ARIPiprazole 10 MG TAB PO SCH ×2 (08:21→23:26)
[2021-02-09] MEDS: OLANZapine 5 MG TAB PO SCH ×2 (08:21→23:25)
[2021-02-09] MEDS: KETOROLAC 30 MG/ML VIAL IVP PRN ×2 (08:25→17:37)
[2021-02-09] MEDS: DEXT 5% / NACL 0.45% 1,000 ML IV SCH (09:34)
--- NOTE | 2021-02-09 09:36 | NUR ---
MEDICATIONS GIVEN PER MD ORDER. PT EDUCATED VERBALIZED UNDERSTANDING . NO QUESTIONS AT THIS TIME. ALL SAFETY MEASURES ARE IN PLACE.
--- NOTE | 2021-02-09 10:00 | NUR ---
PT REASSESSED FOR PAIN . PT DENIES PAIN AT THIS TIME
[2021-02-09 12:00] VITALS: BP 137/84
--- NOTE | 2021-02-09 12:48 | NUR ---
PT IN BED RESTING , PT AWOKEN FOR LUNCH THEN CLOSED EYES AGAIN , BREATHING IS SYMMETRICAL AND UNLABORED
--- NOTE | 2021-02-09 13:18 | NUR ---
DC PLANNING: JOSE SPOKE WITH THE PATIENT AT BEDSIDE. PATIENT IS KNOWN TO DIRECTOR OF FRONT OFFICE FROM PRIOR ADMISSIONS. HE LIVES IN A RESIDENTIAL REHAB THROUGH THE [employer] [facility] IN [place]. HE HAD A PANCREATIC DRAIN PLACED AT [facility] 3 WEEKS AGO AND HAS BEEN DRAINING IT HIMSELF. HE HAS AN APPOINTMENT AT [facility] FOR FOLLOW UP MANAGEMENT OF THE DRAIN ON SUNDAY, 02/11 AND WILL NEED A TAXI VOUCHER TO GET BACK TO HIS RESIDENCE WITH [employer]. [facility] PROVIDES TRANSPORT TO [facility] AND APPOINTMENTS NEEDED, PLAN IS FOR THE PATIENT TO RETURN THERE WHEN CLINICALLY STABLE. JOSE WILL FOLLOW FOR NEEDS. Addendum: 02/10/21 at 1558 by Yudi Mcwilliams CM PATIENT IS A 40 YEAR OLD MALE ADMITTED ON 02/07/21 FROM THE [facility] ER DUE TO C/O OF ABDOMINAL PAIN. SHERI MET WITH PATIENT AT BEDSIDE TO DISCUSS AND GATHER HIS COLLATERAL INFORMATION AND PROVIDE RESOURCES AND SERVICES NEEDED DURING HOSPITALIZATION. PER PATIENT HE HAS HX. OF SUBSTANCE ABUSE AND HAS BEEN PLACED IN A SUBSTANCE ABUSE REHAB PROGRAM "[facility]" IN [place]. PER PATIENT HE HAS COMPLETED THE PROGRAM AND CONTINUES INVOLVED WITH THEM IN AN OUTPATIENT SETTING. PATIENT HAS ALSO MOVED OUT THE REHAB AND IS NOW LIVING WITH ROOMMATES AT A [facility]BER LIVING HOME IN [place]. WHEN SHERI OFFERED SUBSTANCE ABUSE RESOURCES TO PATIENT, HE DECLINED GIVING HIS REASON OF ALREADY BEEN INVOLVED IN A PROGRAM. PATIENT REPORTED NOT HAVING ADVANCE DIRECTIVES AND WAS INTERESTED ON ADVANCE DIRECTIVE PACKET PROVIDED BY SHERI. PATIENT REPORTED NOT HAVING A PCP HOWEVER; STATED THAT HE DID NOT WANT OR NEEDED RESOURCES DUE TO ALREADY HAVING AN MD THAT HE SEES AT REHAB AND BEEN LINK WITH A CLINIC IN [place] THEREFORE; AGAIN DECLINED RESOURCES. PER PATIENT HIS EMERGENCY CONTACT AND DECISION MAKER IN CASE OF EMERGENCIES IT WILL BE HIS BROTHER HILARIA VICTOR AT . PER PATIENT HE HAS NO DME AND NO ISSUES GETTING HIS MEDICATIONS WHEN PRESCRIBED AT THE [facility] IN [place]. PER PATIENT HE HAS FRIENDS THAT CAN ASSIST HIM WITH TRANSPORTATION BACK HOME AT THE TIME OF DISCHARGE. SW WILL FOLLOW UP WITH PATIENT NEEDED.
--- NOTE | 2021-02-09 14:00 | NUR ---
REASON FOR EVALUATION: ABDOMINAL WOUND WOUND ASSESSMENT COMPLETED ON THIS 40 Y/O MALE ADMITTED TO [facility] UNIT FOR ACUTE PANCREATITIS. PATIENT IS FROM HOME. PAST MEDICAL HISTORY INCLUDES GALLSTONE PANCREATITIS, CHOLECYSTITIS, ALCOHOL USE DISORDER, TOBACCO USE DISORDER, SCHIZOPHRENIA. ALL ABOVE INFORMATION WAS OBTAINED FROM THE ADMISSION H&P. LABS ARE WBC 6.0, H/H 9.6/29.0, GLUCOSE 88, ALBUMIN 3.4. PATIENT IS AAOX4, APPROPRIATE AFFECT. SKIN IS WARM TO TOUCH, COLOR APPROPRIATE TO ETHNICITY. ORAL MUCOSAL MEMBRANES MOIST. INDEPENDENT IN TURNING AND AMBULATING WITH STEADY GAIT. PLAN OF WOUND CARE DISCUSSED WITH PATIENT AND PRIMARY RN. PATIENT VERBALIZED UNDERSTANDING. PATIENT ADMITTED WITH ABDOMINAL WOUND S/P PIGTAIL CATHETER PLACEMENT [address] [facility] FOR PANCREATITIS. COMORBIDITIES RELATED TO FURTHER SKIN BREAKDOWN SUCH ETOH ABUSE. INTEGUMENTARY: - ANTERIOR ABDOMEN INCISIONAL WOUND S/P PIGTAIL CATHETER DRINAGE PLACEMENT 3 WEEKS AGO FOR PANCREATITIS AT [facility]. DRAINAGE SYSTEM IN PLACE, PATETENT WITH SEROSANGUINOUS DRAINAGE. NO ODOR. NO S/S OF INFECTION, PERIWOUND PINK, INTACT. RECOMMENDATIONS: - ANTERIOR ABDOMEN INCISIONAL WOUND - CLEANSED WITH NS, PAT DRY, APPLIED SPLIT GAUZE, AND COVERED WITH TRANSPARENT DRY DRESSING DAILY AND PRN IF SOILED. - ASSESS AND MONITOR SKIN CONDITION QSHIFT.
--- NOTE | 2021-02-09 15:52 | NUR ---
PT RESTING IN BED, PT REMAINS NPO . PT UP DANGLING . URINAL EMPTIED 1500 THUS FAR
--- NOTE | 2021-02-09 17:00 | NUR ---
PT RESTING IN BED COMPLAINS OF PAIN PRN MEDICATION WILL BE GIVEN
--- NOTE | 2021-02-09 18:20 | NUR ---
URINAL EMPTIED. PT RESTING IN BED ALL SAFETY MEASURES ARE IN PLACE.
--- NOTE | 2021-02-09 19:20 | NUR ---
PT ENDORSED TO DATA ENTRY PROCESSOR NURSE FOR CONTINUITY OF CARE. PT IN STABLE CONDITION
[2021-02-09 20:00] VITALS: BP 140/85
--- NOTE | 2021-02-10 02:44 | NUR ---
patient alert on room air npo lungs clear sat 98% abdomen with small dressing dry intact has pigtail draining lite redish pink drain patient using urinal 1000cc out. has ivf infusing at 80 hour d51/2ns temp 97.8 no signs of distress no c/o of pain.
[2021-02-10 04:00] VITALS: BP 135/80
[2021-02-10] MEDS: DEXT 5% / NACL 0.45% 1,000 ML IV SCH (04:14)
[2021-02-10] MEDS: metroNIDAZOLE 500 MG/NS PREMIX 100 ML IV SCH (04:22)
[2021-02-10 06:24] LABS: BASOPHILS % (AUTO) 0.8 % (0.0-2.0); EOSINOPHILS # (AUTO) 0.2 K/uL (0-0.4); EOSINOPHILS % (AUTO) 5.3 % (0.0-4.0); HEMATOCRIT 29.1 % (36-52); HEMOGLOBIN 9.8 g/dL (12.0-18.0); LYMPHOCYTES # (AUTO) 1.5 K/uL (2.0-11.5); LYMPHOCYTES % (AUTO) 41.9 % (20.5-51.1); MEAN CORPUSCULAR HEMOGLOBIN 31 pg (27-31); MEAN CORPUSCULAR HGB CONC 34 g/dL (33-37); MEAN CORPUSCULAR VOLUME 91.4 fL (80-94); MONOCYTES # (AUTO) 0.3 K/uL (0.8-1.0); MONOCYTES % (AUTO) 9.5 % (1.7-9.3); NEUTROPHILS # (AUTO) 1.5 K/uL (1.8-7.7); NEUTROPHILS % (AUTO) 42.5 % (42.2-75.2); PLATELET COUNT (AUTO) 309 K/uL (140-450); RED BLOOD CELL COUNT(AUTO) 3.18 MIL/uL (4.20-6.10); RED CELL DISTRIBUTION WIDTH 14.1 % (11.6-13.7); WHITE BLOOD COUNT (AUTO) 3.6 K/uL (4.8-10.8)
[2021-02-10 06:34] LABS: CARBON DIOXIDE 29.4 mmol/L (21-32); CREATININE 0.8 mg/dL (0.6-1.3); POTASSIUM 3.4 mmol/L (3.5-5.1)
--- NOTE | 2021-02-10 07:25 | NUR ---
RECEIVED REPORT FROM MANAGER INTERFACE RN FOR CONTINUITY OF CARE. PATIENT IS RESTING IN BED. RESPIRATIONS ARE EVEN AND UNLABORED. NO S/S OF DISTRESS. ALL SAFETY PRECAUTIONS IN PLACE.
[2021-02-10] MEDS ORDERED: NACL 0.45% 1,000 ML IV SCH (08:25)
--- NOTE | 2021-02-10 09:00 | NUR ---
CHECKED ON PATIENT. PATIENT STABLE. DISCUSSED POC WITH PATIENT. PATIENT VERBALIZED UNDERSTANDING.
[2021-02-10] MEDS: ARIPiprazole 10 MG TAB PO SCH (11:15)
[2021-02-10] MEDS: PANTOPRAZOLE 40 MG INJ VIAL IVP SCH (11:16)
[2021-02-10] MEDS: OLANZapine 5 MG TAB PO SCH (11:16)
--- NOTE | 2021-02-10 11:45 | NUR ---
PROVIDED DISCHARGE INSTRUCTIONS AND INFORMATION TO PATIENT. PATIENT VERBALIZED UNDERSTANDING.
[2021-02-10 12:23] VITALS: BP 103/69
--- NOTE | 2021-02-10 13:00 | NUR ---
PATIENT DISCHARGED FROM UNIT. PATIENT IS STABLE. IV REMOVED, IV WAS INTACT. REMOVED ID BAND PRIOR TO PATIENT LEAVING.
== END 2021-02-10 13:00 | disposition home health service (06) | DRG 282 ==
LOC: MED 19:55 → MTU 22:44
PROVIDERS: ADMIT Hospitalist; ATTEND Hospitalist
DX: K85.90 Acute pancreatitis without necrosis or infection, unspecified (principal); I95.9 Hypotension, unspecified; E83.51 Hypocalcemia; J45.909 Unspecified asthma, uncomplicated; F20.9 Schizophrenia, unspecified; F17.210 Nicotine dependence, cigarettes, uncomplicated; D64.9 Anemia, unspecified; K57.30 Diverticulosis of large intestine without perforation or abscess without bleeding; E87.6 Hypokalemia; E87.8 Other disorders of electrolyte and fluid balance, not elsewhere classified; Z71.6 Tobacco abuse counseling; Z79.899 Other long term (current) drug therapy; Z90.49 Acquired absence of other specified parts of digestive tract; Z56.0 Unemployment, unspecified
CPT/HCPCS: 36415; 80048; 80053; 80305; 82150; 83690; 83735; 84100; 85025; 87040; 87081; 96361; 96374; 96375; 96376; 99285; C9113; J0696; J1885; J2270; J2405; J3490; J7060; Q9967